=== PATIENT | female | born 1995 | race African-American/Black ===

== ENCOUNTER 2021-05-02 08:50 | Emergency (ER) | payer OTHER, SELFPAY ==
--- NOTE | 2021-05-02 08:55 | ED.SKABFB ---
HPI - Skin/Abscess/Foreign Bdy General Chief complaint: Ear Stated complaint: Foreign Body In Ear Time Seen by Provider: 05/02/21 08:55 Source: patient and RN notes reviewed History of Present Illness HPI narrative: Patient is a 25-year-old female presents the urgent care with complaints of a possible bug in the left ear. Patient states that at 6 AM this morning she felt something crawl in there . Patient states that when she used rubbing alcohol she felt the possible bug movement. No other acute complaints. Currently denies any pain or hearing loss. No acute distress noted. Patient read the plan of care. Some parts of this dictation were generated by voice recognition software and may contain typographical and/or grammatical inaccuracies. Related Data Home Medications Medication Instructions Recorded Confirmed No Home Medications 05/02/21 05/02/21 Allergies Allergy/AdvReac Type Severity Reaction Status Date / Time No Known Allergies Allergy Verified 05/02/21 09:07 Review of Systems Review of Systems: CONSTITUTIONAL: Denies fever, chills, or sweats. EYES: Denies visual changes, redness, or discharge. ENT: Denies rhinorrhea, congestion, sore throat, or otalgia. Reports of a possible bug in the left ear CARDIOVASCULAR: Denies chest pain, palpitations, or edema. RESPIRATORY: Denies cough or dyspnea. GASTROINTESTINAL: Denies abdominal pain, nausea, vomiting, or diarrhea. GENITOURINARY: Denies dysuria or hematuria. SKIN: Denies rash or itching. MUSCULOSKELETAL: Denies back pain, joint pain, or myalgia. NEUROLOGIC: Denies headache, numbness, or weakness. All other systems reviewed are negative, except as documented in HPI. PMFSH Comments At the time of my signature, I reviewed and agree with the nursing past medical, surgical, social, and family history. There is no relevant family history pertinent to the patient complaint. Exam Narrative: GENERAL: This is a well-nourished, well-developed patient, in no apparent distress. HEAD: normocephalic, atraumatic. EYES: PERRL. Sclera clear/white. Vision is grossly intact. EARS: External ears normal, auditory canals clear and without drainage, no foreign body noted, cerumen noted bilaterally. TMs normal without perforation. Hearing grossly intact. NOSE: External nose normal with no obvious nasal discharge, nares without redness, no rhinorrhea. THROAT: Mucous membranes moist NECK: Neck supple CARDIOVASCULAR: Regular rate and rhythm RESPIRATORY: Clear to auscultation. Breath sounds equal bilaterally. No wheezes, rales, or rhonchi. SKIN: warm, intact with no suspicious lesions or rash, good texture and turgor. NEURO: awake, alert, and oriented to person, place and time. There were no obvious focal neurologic abnormalities. EXTREMITIES: No clubbing, cyanosis, or edema. Course Course Level of Care: Express Care Visit Vital Signs Vital signs: Vital Signs Temperature 98 F 05/02/21 08:58 Pulse Rate 87 05/02/21 08:58 Respiratory Rate 18 05/02/21 08:58 Blood Pressure 134/87 05/02/21 08:58 Pulse Oximetry 100 05/02/21 08:58 Temperature 98 F 05/02/21 08:58 Pulse Rate 87 05/02/21 08:58 Respiratory Rate 18 05/02/21 08:58 Blood Pressure 134/87 05/02/21 08:58 Pulse Oximetry 100 05/02/21 08:58 Reviewed Procedures Ear Wax Removal Left Ear: Cerumenolytic Used: other (50-50 peroxide and warm water) Results: Re-examined: some cerumen remains TM Examination: TM(s) intact, normal appearance Patient Tolerated Procedure: well and no complications Complications: no problems Additional Comments: No foreign body noted to the left ear canal. Scant cerumen still remains. Patient tolerated well with 50-50 peroxide and warm water in the use of a lighted curette. No complications. MDM - Skin/Abscess/Foreign Bdy MDM Narrative Medical decision making narrative: Patient is aware that there was no a notable foreign body/
[2021-05-02 08:58] VITALS: BP 134/87; PULSE 87; RESP 18; TEMP 36.6; O2SAT 100
== END 2021-05-02 09:20 | disposition home or self-care (01) ==
PROVIDERS: Emergency Provider Nurse Practitioner Family; PCP Nurse Practitioner Family
DX: H61.22 Impacted cerumen, left ear (principal)
CPT/HCPCS: 69210; 99212; G0463